=== PATIENT | male | born 1965 | race Hispanic/Latino ===

== ENCOUNTER 2021-04-18 19:18 | Emergency (ER) | payer SELFPAY ==
[~2021-04-18] VITALS: Ht 177.8 cm; Wt 72.6 kg
[2021-04-18 19:20] VITALS: BP 142/72
[2021-04-18] MEDS ORDERED: CLINDAMYCIN 150 MG CAP PO ONE (20:30)
[2021-04-18] MEDS ORDERED: CLINDAMYCIN IVPB 600MG/50ML 50 ML IV ONE (20:30)
[2021-04-18] MEDS ORDERED: CEFTRIAXONE 1G VIAL IM ONE (21:00)
[2021-04-18] MEDS ORDERED: CICL34.62 TP (21:23)
[2021-04-18] MEDS ORDERED: CLIN-141 PO (21:23)
== END 2021-04-18 21:40 | disposition home or self-care (01) ==
LOC: EDH 19:18
DX: L03.011 Cellulitis of right finger (principal); B35.1 Tinea unguium; Z79.899 Other long term (current) drug therapy
CPT/HCPCS: 73140; 96372; 99283; J0696